=== PATIENT | female | born 1990 | race Caucasian/White ===

== ENCOUNTER → 2016-08-05 | Outpatient (CLI) | payer OTHER ==
[~2016-08-05] MED LIST: ISOVUE-370 76% 100ML VIAL (Q9967) As Ordered ONE
--- NOTE | 2016-08-05 15:12 | REP ---
HYSTEROSALPINGOGRAM: Hysterosalpingogram is performed. The cervix is catheterized by the referring clinician who injected contrast. I performed fluoroscopy and obtained spot radiographs. The uterine cavity demonstrates no polypoid filling defect or contour abnormality. Fallopian tubes are normal in caliber. There is free passage of contrast through both fallopian tubes with free intraperitoneal spillage bilaterally indicating bilateral fallopian tube patency. IMPRESSION: Bilateral fallopian tubes are patent. 6 seconds of fluoroscopy time utilized. Signed by Myles Zarate MD 08/05/2016 04:43 P
== END ==
LOC: M RADPRO 11:35
PROVIDERS: ATTEND Obstetrics & Gynecology
DX: N97.9 Female infertility, unspecified (principal)
CPT/HCPCS: 58340; 74740; Q9967

== ENCOUNTER → 2016-09-27 | Outpatient (CLI) | payer OTHER | LOC: M RAD 09:18 | PROVIDERS: ATTEND Obstetrics & Gynecology | DX: E22.1 Hyperprolactinemia (principal) ==

== ENCOUNTER 2017-06-16 15:52 | Outpatient (CLI) | payer OTHER ==
[2017-06-16 16:55] LABS: HEMATOCRIT 32.3 % (36.0-47.0); HEMOGLOBIN 10.4 g/dl (12.0-16.0); MEAN CORPUSCULAR HEMOGLOBIN 26.9 pg (27.0-33.0); MEAN CORPUSCULAR HGB CONC 32.2 g/dl (32.0-36.5); MEAN CORPUSCULAR VOLUME 83.5 fl (80.0-96.0); PLATELET COUNT, AUTOMATED 141 10^3/uL (150-450); RED BLOOD COUNT 3.87 10^6/uL (4.00-5.40); RED CELL DISTRIBUTION WIDTH 13.3 % (11.5-14.5)
[2017-06-16 17:06] LABS: TOTAL PROTEIN,RANDOM URINE < 5.0 MG/DL (0.0-12.0)
[2017-06-16 17:06] LABS: CREATININE,RANDOM URINE 27.3 MG/DL
[2017-06-16 17:22] LABS: ALT/SGPT 10 U/L (12-78); AST/SGOT 13 U/L (7-37); BILIRUBIN,TOTAL 0.3 MG/DL (0.2-1.0); CREATININE FOR GFR 0.77 MG/DL (0.55-1.30); GLOMERULAR FILTRATION RATE > 60.0 (>60); LDH LACTATE DEHYDROGENASE 185 U/L (84-246); URIC ACID 4.7 MG/DL (2.6-6.0)
== END 2017-06-16 18:15 | disposition home or self-care (01) ==
LOC: M LDO 15:52
DX: O26.893 Other specified pregnancy related conditions, third trimester (principal); Z3A.38 38 weeks gestation of pregnancy; O99.413 Diseases of the circulatory system complicating pregnancy, third trimester; R03.0 Elevated blood-pressure reading, without diagnosis of hypertension; Z88.1 Allergy status to other antibiotic agents
CPT/HCPCS: 59025

== ENCOUNTER 2017-06-23 06:25 | Inpatient (IN) | payer OTHER ==
[2017-06-23] MEDS ORDERED: BUTORPHANOL 2 MG/ML INJ (J0595) IV (08:45)
[2017-06-23] MEDS ORDERED: miSOPROStol 25 MCG 1/4 TAB (S0191) PV (08:45)
[2017-06-23] MEDS: LACTATED RINGER'S 1000 ML IV (08:46)
[2017-06-23 09:01] LABS: HEMATOCRIT 33.5 % (36.0-47.0); HEMOGLOBIN 10.8 g/dl (12.0-16.0); MEAN CORPUSCULAR HEMOGLOBIN 26.7 pg (27.0-33.0); MEAN CORPUSCULAR HGB CONC 32.2 g/dl (32.0-36.5); MEAN CORPUSCULAR VOLUME 82.7 fl (80.0-96.0); PLATELET COUNT, AUTOMATED 138 10^3/uL (150-450); RED BLOOD COUNT 4.05 10^6/uL (4.00-5.40); RED CELL DISTRIBUTION WIDTH 13.8 % (11.5-14.5); WHITE BLOOD COUNT 11.2 10^3/uL (4.0-10.0)
[2017-06-23] MEDS: OXYTOCIN DRIP 30 UNITS in APPROPRIATE DILUENT 1 EA IV ×2 (09:06→22:59)
[2017-06-23 09:27] LABS: TOTAL PROTEIN,RANDOM URINE 44.8 MG/DL (0.0-12.0)
[2017-06-23 09:30] LABS: ALBUMIN 2.8 GM/DL (3.2-5.2); ALBUMIN/GLOBULIN RATIO 0.85 (1.00-1.93); ALKALINE PHOSPHATASE 171 U/L (45-117); ALT/SGPT 11 U/L (12-78); ANION GAP 11 MEQ/L (8-16); AST/SGOT 16 U/L (7-37); BILIRUBIN,TOTAL 0.2 MG/DL (0.2-1.0); BLOOD UREA NITROGEN 12 MG/DL (7-18); CALCIUM LEVEL 8.2 MG/DL (8.5-10.1); CARBON DIOXIDE LEVEL 21 MEQ/L (21-32); CHLORIDE LEVEL 106 MEQ/L (98-107); CREATININE FOR GFR 0.74 MG/DL (0.55-1.30); GLOMERULAR FILTRATION RATE > 60.0 (>60); GLUCOSE, FASTING 80 MG/DL (70-100); SODIUM LEVEL 138 MEQ/L (136-145); TOTAL PROTEIN 6.1 GM/DL (6.4-8.2)
[2017-06-23] MEDS: LR 1,000 ML IV ×2 (09:50→17:51)
[2017-06-23] MEDS ORDERED: FENTANYL 2MCG/ML ROPIVACAINE 0.2% IN 0.9% NACL 200ML IVBAG As Ordered (10:07)
[2017-06-23] MEDS ORDERED: NALOXONE INJ 0.4 MG/1 ML VIAL (J2310) IV (12:15)
[2017-06-23] MEDS ORDERED: ePHEDrine SULFATE 25 MG/5 ML(5MG/ML) SYRINGE IV (12:15)
[2017-06-23] MEDS ORDERED: diphenhydrAMINE INJ 50MG/ML VIAL (J1200) IV (12:15)
[2017-06-23] MEDS ORDERED: EPIDURAL/PCA KEYS XX (12:15)
[2017-06-23] MEDS: FENTANYL/ROPIVACAINE/NACL BAG 200 ML EPIDURAL (12:15)
[2017-06-23] MEDS ORDERED: REFRIGERATOR IV KEYS XX (12:15)
[2017-06-23] MEDS ORDERED: EPIDURAL COMMENT XX (12:15)
[2017-06-23] MEDS: ONDANSETRON 4MG/2ML VIAL (J2405) IV (19:02)
[2017-06-24] MEDS ORDERED: MEASLES,MUMPS,RUBELLA VACCINE INJ (MMR-II) (90707) SC (01:15)
[2017-06-24] MEDS ORDERED: RHOGAM 300 MCG (1500 IU) INJ (J2790) IM (01:15)
[2017-06-24] MEDS: CLINDAMYCIN 900 MG in APPROPRIATE DILUENT 1 EA IV (01:49)
[2017-06-24] MEDS: miSOPROStol 200 MCG TAB (S0191) PR (01:50)
[2017-06-24] MEDS: LR 1,000 ML IV (01:50)
[2017-06-24] MEDS: GENTAMICIN 120 MG in D5W 50 ML IV (02:47)
[2017-06-24 06:54] LABS: HEMATOCRIT 23.2 % (36.0-47.0); MEAN CORPUSCULAR HEMOGLOBIN 27.6 pg (27.0-33.0); MEAN CORPUSCULAR HGB CONC 33.2 g/dl (32.0-36.5); MEAN CORPUSCULAR VOLUME 83.2 fl (80.0-96.0); PLATELET COUNT, AUTOMATED 107 10^3/uL (150-450); RED BLOOD COUNT 2.79 10^6/uL (4.00-5.40); WHITE BLOOD COUNT 23.5 10^3/uL (4.0-10.0)
[2017-06-24 07:06] LABS: HEMOGLOBIN 7.7 g/dl (12.0-16.0)
[2017-06-24] MEDS: IBUPROFEN 800 MG TAB PO ×2 (08:20→19:52)
[2017-06-24] MEDS: PRENATAL VITAMINS CHEWABLE TABLET PO (08:21)
[2017-06-24] MEDS: DOCUSATE SODIUM 100 MG CAP PO ×2 (08:21→19:52)
[2017-06-24 18:00] LABS: HEMATOCRIT 22.9 % (36.0-47.0); HEMOGLOBIN 7.6 g/dl (12.0-16.0); MEAN CORPUSCULAR HEMOGLOBIN 27.3 pg (27.0-33.0); MEAN CORPUSCULAR HGB CONC 33.2 g/dl (32.0-36.5); MEAN CORPUSCULAR VOLUME 82.4 fl (80.0-96.0); PLATELET COUNT, AUTOMATED 105 10^3/uL (150-450); RED BLOOD COUNT 2.78 10^6/uL (4.00-5.40); RED CELL DISTRIBUTION WIDTH 14.3 % (11.5-14.5); WHITE BLOOD COUNT 20.5 10^3/uL (4.0-10.0)
[2017-06-24] MEDS: DIBUCAINE 1% OINTMENT 30GM TOP (19:52)
[2017-06-24] MEDS: ACETAMINOPHEN 500 MG TAB PO (19:53)
[2017-06-25] MEDS: ACETAMINOPHEN 500 MG TAB PO (03:16)
[2017-06-25] MEDS: IBUPROFEN 800 MG TAB PO ×2 (03:17→15:39)
[2017-06-25] MEDS: PRENATAL VITAMINS CHEWABLE TABLET PO (08:39)
[2017-06-25 17:17] LABS: HEMATOCRIT 23.8 % (36.0-47.0); HEMOGLOBIN 7.8 g/dl (12.0-16.0); MEAN CORPUSCULAR HEMOGLOBIN 27.4 pg (27.0-33.0); MEAN CORPUSCULAR HGB CONC 32.8 g/dl (32.0-36.5); MEAN CORPUSCULAR VOLUME 83.5 fl (80.0-96.0); PLATELET COUNT, AUTOMATED 156 10^3/uL (150-450); RED BLOOD COUNT 2.85 10^6/uL (4.00-5.40); RED CELL DISTRIBUTION WIDTH 14.6 % (11.5-14.5); WHITE BLOOD COUNT 14.2 10^3/uL (4.0-10.0)
[2017-06-26] MEDS: PRENATAL VITAMINS CHEWABLE TABLET PO (07:46)
== END 2017-06-26 12:20 | disposition home or self-care (01) | DRG 775 ==
LOC: M LDI 06:25 → M OBS 06-24 10:21
PROVIDERS: Student in an Organized Health Care Education/Training Program
PROC: 3E033VJ Introduction of Other Hormone into Peripheral Vein, Percutaneous Approach (ICD-10-PCS; 2017-06-23)
PROC: 10907ZC Drainage of Amniotic Fluid, Therapeutic from Products of Conception, Via Natural or Artificial Opening (ICD-10-PCS; 2017-06-23)
PROC: 10E0XZZ Delivery of Products of Conception, External Approach (ICD-10-PCS; principal; 2017-06-24)
PROC: 0UQC7ZZ Repair Cervix, Via Natural or Artificial Opening (ICD-10-PCS; 2017-06-24)
PROC: 0HQ9XZZ Repair Perineum Skin, External Approach (ICD-10-PCS; 2017-06-24)
DX: O13.4 Gestational [pregnancy-induced] hypertension without significant proteinuria, complicating childbirth (principal); Z37.0 Single live birth; O71.3 Obstetric laceration of cervix; Z3A.39 39 weeks gestation of pregnancy; Z88.1 Allergy status to other antibiotic agents; O77.0 Labor and delivery complicated by meconium in amniotic fluid; O70.0 First degree perineal laceration during delivery